=== PATIENT | male | born 1985 | race Caucasian/White ===

== ENCOUNTER 2018-04-20 17:49 | Emergency (ER) | END 2018-04-20 20:44 | disposition home or self-care (01) ==

== ENCOUNTER 2018-08-16 16:30 | Emergency (ER) | payer MEDICAID ==
[~2018-08-16] VITALS: Wt 86.3 kg
[~2018-08-16 16:30] MED LIST: IBUP800T48 PO
[2018-08-16] MEDS ORDERED: KETOROLAC 30 MG INJ IM STA (20:51)
--- NOTE | 2018-08-16 20:51 | ERD ---
ER Documentation Chief Complaint Chief Complaint R hand pain - minimal swelling d/t injury today HPI This is a 33-year-old male who presents to the emergency department with complaints of right hand pain. Stated that this started last night while practicing on a punching bag. Stated that he was doing straight punch when his fourth and fifth knuckle landed first accidentally to the bag.. Denies headache, head injury, loss of consciousness, dizziness, neck pain, neck stiffness, throat pain, difficulty swallowing, difficulty breathing lying flat, shoulder pain, chest pain, back pain, abdominal pain, nausea, vomiting, constipation, diarrhea, urinary symptoms, loss of bowel and bladder control, difficulty walking due to pain, numbness or tingling sensation, calf pain, recent travel, recent major surgery in the last 3 weeks, calf pain, recent long travel, recent exposure to any illness, recent antibiotic use in the last 3 months, fever, chills, seizures. Past medical history: Surgical history: Social: Denies smoking, use of alcoholic beverages, use of illegal drugs. ROS All systems reviewed and are negative except as per history of present illness. Medications Home Meds Active Scripts Ibuprofen* (Motrin*) 800 Mg Tab, 800 MG PO Q6H PRN for PAIN AND OR ELEVATED TEMP, #30 TAB Prov:CINDYHAROLDO Garcia 08/16/18 Ibuprofen* (Motrin*) 800 Mg Tab, 800 MG PO Q6H PRN for PAIN AND OR ELEVATED TEMP, #30 TAB Prov:AMBIKA ROBERTS PA-C 04/20/18 Allergies Allergies: Coded Allergies: No Known Allergy (Unverified , 04/20/18) PMhx/Soc Hx Alcohol Use: Yes (OCCASIONAL) Hx Substance Use: No Hx Tobacco Use: No Physical Exam Vitals Physical Exam Const: No acute distress Head: Atraumatic Eyes: Normal Conjunctiva ENT: Normal External Ears, Nose and Mouth. Neck: Full range of motion. No meningismus. Resp: Clear to auscultation bilaterally Cardio: Regular rate and rhythm, no murmurs Abd: Soft, non tender, non distended. Normal bowel sounds Skin: No petechiae or rashes Back: No midline or flank tenderness. C-spine/T-spine/L-spine are midline with good and full range of motion and is no swelling/deformity/bulging/point of tenderness. Ext: No cyanosis. Right hand: Fourth and fifth metacarpal area has tenderness and swelling. MCP/PIP/DIP of right fourth/ring and fifth/pinky fingers has good and full range of motion and is no swelling/deform ity/discoloration to its phalanges. Right index/middle fingers has good and full range of motion of its MCP/PIP/DIP with no suspicion of tendon injury and without any swelling. Right thumb is unremarkable. No snuffbox tenderness. Right wrist is unremarkable. Right forearm is unremarkable. Right radial pulse is within normal limits. Right elbow is unremarkable. Right shoulder is unremarkable. Capillary refills to right upper extremity are unremarkable. Left upper extremity is unremarkable. Neur: Awake and alert. No neurovascular deficit. Psych: Normal Mood and Affect Results 24 hrs Current Medications Medications Dose Sig/K[place] Start Time Status Last (Trade) Ordered Route PRN Stop Time Admin Dose Reason Admin Ketorolac 30 mg ONCE STAT 08/16/18 DC 08/16/18 Tromethamine IM 20:51 21:15 (Toradol) 08/16/18 20:52 1 tab ONCE ONCE 08/16/18 DC 08/16/18 Acetaminophen PO 21:00 21:16 / 08/16/18 21:01 Hydrocodone Bitart (Blodgett (10)) Procedures/MDM Diagnostic tests: X-ray of the right hand: Swelling right hand. No fracture or dislocation. X-ray of the right wrist: Mild diffuse soft tissue swelling right wrist. No fracture or dislocation.. Treatment: Toradol IM. Blodgett p.o. Jesus wrap. Re-evaluation: No neurovascular deficit prior to and after the application of Jesus wrap. Differential diagnosis I have low suspicion for tendon injury, displaced fracture, compartment syndrome, subungual hematoma, comminuted fracture. Final diagnosis: Right hand sprain. Right hand contusion. Wrist sprain. Prescription: Motrin. Follow-up with PCP in the next 24-48 hours. Follow-up with orthopedic doctor in the next 24-48 hours. Follow-up with hand specialist in the next 24-48 hours. Come back here in the emergency department for any new symptoms or any worsening symptoms. All questions and concerns were answered. Patient and family members verbalized understanding and agreed with plan of care. Hemodynamically stable on discharge. Departure Diagnosis: Primary Impression: Sprain of right hand Additional Impressions: Wrist sprain Hand contusion Condition: Stable Additional Instructions: Follow-up with PCP in the next 24-48 hours. Follow-up with orthopedic doctor in the next 24-48 hours. Follow-up with hand specialist in the next 24-48 hours. Come back here in the emergency department for any new symptoms or any worsening symptoms. HAROLDO WHITE Aug 16, 2018 20:51
[2018-08-16] MEDS ORDERED: HYDROCODONE/APAP (10/325) TAB PO ONE (21:00)
[2018-08-16] MEDS ORDERED: IBUP800T48 PO (22:06)
[2018-08-16 22:17] VITALS: BP 118/67; PULSE 58; RESP 18
== END 2018-08-16 22:19 | disposition home or self-care (01) ==
LOC: FTE 16:30
DX: S63.501A Unspecified sprain of right wrist, initial encounter (principal); W22.8XXA Striking against or struck by other objects, initial encounter; Y92.9 Unspecified place or not applicable
CPT/HCPCS: 73110; 73130; J1885; Z7610; 96372